=== PATIENT | female | born 1985 | race American Indian/Alaskan Native ===

== ENCOUNTER 2019-08-31 16:34 | Emergency (ER) | payer SELFPAY | END 2019-08-31 17:40 | disposition left against medical advice (07) | LOC: ED 16:34 | DX: O20.8 Other hemorrhage in early pregnancy (principal); Z53.21 Procedure and treatment not carried out due to patient leaving prior to being seen by health care provider ==

== ENCOUNTER 2019-12-09 13:13 | Emergency (ER) | payer SELFPAY ==
--- NOTE | 2019-12-09 13:23 | Emergency Department Report ---
Blank Doc - Documentation Documentation: 34-year-old female that presents with flank pain with pelvic pain. This initial assessment/diagnostic orders/clinical plan/treatment(s) is/are subject to change based on patient's health status, clinical progression and re- assessment by fellow clinical providers in the ED. Further treatment and workup at subsequent clinical providers discretion. Patient/guardians urged not to elope from the ED as their condition may be serious if not clinically assessed and managed. Initial orders include: 1- Patient sent to [facility] for further evaluation and treatment 2- UA
[2019-12-09 14:53] LABS: Bacteria,Urine 1+ /HPF (Negative); Bilirubin,Urine NEG (Negative); Blood,Urine NEG (Negative); Color,Urine Amber (Yellow); Mucus,Urine 3+ /HPF; Protein,Urine <15 mg/dL mg/dL (Negative)
[2019-12-09] MEDS ORDERED: SODIUM CHLORIDE 0.9% 1000 ML 1,000 ML IV ONE (14:59)
[2019-12-09] MEDS ORDERED: cefTRIAXone/NS 1 GM/50 ML 1 GM/50 ML BAG IV ONE (15:11)
[2019-12-09 15:33] LABS: Basophils % (Auto) 0.5 % (0.0-1.8); Eosinophils # (Auto) 0.2 K/mm3 (0.0-0.4); Eosinophils % (Auto) 2.2 % (0.0-4.3); Hematocrit 35.6 % (30.3-42.9); Hemoglobin 11.5 gm/dl (10.1-14.3); Lymphocytes # (Auto) 2.2 K/mm3 (1.2-5.4); Lymphocytes % (Auto) 30.3 % (13.4-35.0); Mean Corpuscular HGB Conc 32 % (30-34); Mean Corpuscular Volume 89 fl (79-97); Monocytes # (Auto) 0.5 K/mm3 (0.0-0.8); Monocytes % (Auto) 6.8 % (0.0-7.3); Platelet Count 264 K/mm3 (140-440); Red Blood Count 3.98 M/mm3 (3.65-5.03); Red Cell Distribution Width 13.7 % (13.2-15.2)
[2019-12-09 15:49] LABS: BUN/Creatinine Ratio 24; Blood Urea Nitrogen 17 mg/dL (7-17); Calcium 8.7 mg/dL (8.4-10.2); Hemolysis Index 2
--- NOTE | 2019-12-09 15:54 | Emergency Department Report ---
ED Dysuria HPI - HPI Chief Complaint: Abdominal Pain Stated Complaint: LOWER ABD PAIN Time Seen by Provider: 12/09/19 13:22 Location of Discomfort: Suprapubic Severity: Moderate Symptoms: Dysuria: Yes, Frequency: Yes, Suprapubic Pain: Yes, Flank Pain: Yes, Fever: No, Hematuria: No, Abdominal Pain: No, Previous UTI's: Yes Other History: Patient is a 34-year-old -[place] female comes to the ER today with left flank pain and suprapubic pain. She endorses dysuria. She states that she has had UTIs in the past and she believes she has a urinary tract infection. She denies fever or chills. She denies nausea vomiting diarrhea. Patient is ambulatory nontoxic on arrival to fast-track ED Review of Systems ROS: Stated complaint: LOWER ABD PAIN Other details as noted in HPI Comment: All other systems reviewed and negative ED Past Medical Hx - Past Medical History Previous Medical History?: No - Surgical History Past Surgical History?: Yes Hx Appendectomy: Yes Additional Surgical History: X4 / HERNIA/ - Family History Family history: no significant - Social History Smoking Status: Current Every Day Smoker Substance Use Type: None - Medications Home Medications: Home Medications Medication Instructions Recorded Confirmed Last Taken Type Sulfamethoxazole/Trimethoprim 1 each PO BID #10 tablet 12/09/19 Unknown Rx [Bactrim DS TAB] Dysuria Exam - Exam General: Vital signs noted. No distress. Alert and acting appropriately. Exam: No Moist Mucous Membranes, No CVA Tenderness, No Abdominal Tenderness, No Rigidity or Guarding Labs: Lab Results 12/09/19 12/09/19 12/09/19 Range/Units 14:35 15:16 15:16 WBC 7.1 (4.5-11.0) K/mm3 RBC 3.98 (3.65-5.03) M/mm3 Hgb 11.5 (10.1-14.3) gm/dl Hct 35.6 (30.3-42.9) % MCV 89 (79-97) fl MCH 29 (28-32) pg MCHC 32 (30-34) % RDW 13.7 (13.2-15.2) % Plt Count 264 (140-440) K/mm3 Lymph % (Auto) 30.3 (13.4-35.0) % [place] % (Auto) 6.8 (0.0-7.3) % Eos % (Auto) 2.2 (0.0-4.3) % Baso % (Auto) 0.5 (0.0-1.8) % Lymph # 2.2 (1.2-5.4) K/mm3 [place] # 0.5 (0.0-0.8) K/mm3 Eos # 0.2 (0.0-0.4) K/mm3 Baso # 0.0 (0.0-0.1) K/mm3 Seg Neutrophils % 60.2 (40.0-70.0) % Seg Neutrophils # 4.3 (1.8-7.7) K/mm3 Sodium 139 (137-145) mmol/L Potassium 4.3 (3.6-5.0) mmol/L Chloride 103.3 (98-107) mmol/L Carbon Dioxide 27 (22-30) mmol/L Anion Gap 13 mmol/L BUN 17 (7-17) mg/dL Creatinine 0.7 (0.7-1.2) mg/dL Estimated GFR > 60 ml/min BUN/Creatinine Ratio 24 % Glucose 125 H (65-100) mg/dL Calcium 8.7 (8.4-10.2) mg/dL HCG, Qual (Negative) Urine Color [place] (Yellow) Urine Turbidity Clear (Clear) Urine pH 5.0 (5.0-7.0) Ur Specific [place] 1.023 (1.003-1.030) Urine Protein <15 mg/dl (Negative) mg/dL Urine Glucose (UA) Neg (Negative) mg/dL Urine Ketones Neg (Negative) mg/dL Urine Blood Neg (Negative) Urine Nitrite Pos (Negative) Urine Bilirubin Neg (Negative) Urine Urobilinogen 4.0 (<2.0) mg/dL Ur Leukocyte Esterase Neg (Negative) Urine WBC (Auto) 10.0 H (0.0-6.0) /HPF Urine RBC (Auto) 2.0 (0.0-6.0) /HPF U Epithel Cells (Auto) < 1.0 (0-13.0) /HPF Urine Bacteria (Auto) 1+ (Negative) /HPF Urine Mucus 3+ /HPF 03//20 Range/Units 15:16 WBC (4.5-11.0) K/mm3 RBC (3.65-5.03) M/mm3 Hgb (10.1-14.3) gm/dl Hct (30.3-42.9) % MCV (79-97) fl MCH (28-32) pg MCHC (30-34) % RDW (13.2-15.2) % Plt Count (140-440) K/mm3 Lymph % (Auto) (13.4-35.0) % [place] % (Auto) (0.0-7.3) % Eos % (Auto) (0.0-4.3) % Baso % (Auto) (0.0-1.8) % Lymph # (1.2-5.4) K/mm3 [place] # (0.0-0.8) K/mm3 Eos # (0.0-0.4) K/mm3 Baso # (0.0-0.1) K/mm3 Seg Neutrophils % (40.0-70.0) % Seg Neutrophils # (1.8-7.7) K/mm3 Sodium (137-145) mmol/L Potassium (3.6-5.0) mmol/L Chloride (98-107) mmol/L Carbon Dioxide (22-30) mmol/L Anion Gap mmol/L BUN (7-17) mg/dL Creatinine (0.7-1.2) mg/dL Estimated GFR ml/min BUN/Creatinine Ratio % Glucose (65-100) mg/dL Calcium (8.4-10.2) mg/dL HCG, Qual Negative (Negative) Urine Color (Yellow) Urine Turbidity (Clear) Urine pH (5.0-7.0) Ur Specific [place] (1.003-1.030) Urine Protein (Negative) mg/dL Urine Glucose (UA) (Negative) mg/dL Urine Ketones (Negative) mg/dL Urine Blood (Negative) Urine Nitrite (Negative) Urine Bilirubin (Negative) Urine Urobilinogen (<2.0) mg/dL Ur Leukocyte Esterase (Negative) Urine WBC (Auto) (0.0-6.0) /HPF Urine RBC (Auto) (0.0-6.0) /HPF U Epithel Cells (Auto) (0-13.0) /HPF Urine Bacteria (Auto) (Negative) /HPF Urine Mucus /HPF ED Course Vital Signs 12/09/19 13:22 Temperature 98.6 F Pulse Rate 78 Respiratory 18 Rate Blood Pressure 116/75 O2 Sat by Pulse 98 Oximetry ED Medical Decision Making - Lab Data Result diagrams: 12/09/19 15:16 12/09/19 15:16 - Medical Decision Making Vital Signs 12/09/19 13:22 Temperature 98.6 F Pulse Rate 78 Respiratory 18 Rate Blood Pressure 116/75 O2 Sat by Pulse 98 Oximetry Lab Results 12/09/19 12/09/19 12/09/19 Range/Units 14:35 15:16 15:16 WBC 7.1 (4.5-11.0) K/mm3 RBC 3.98 (3.65-5.03) M/mm3 Hgb 11.5 (10.1-14.3) gm/dl Hct 35.6 (30.3-42.9) % MCV 89 (79-97) fl MCH 29 (28-32) pg MCHC 32 (30-34) % RDW 13.7 (13.2-15.2) % Plt Count 264 (140-440) K/mm3 Lymph % (Auto) 30.3 (13.4-35.0) % [place] % (Auto) 6.8 (0.0-7.3) % Eos % (Auto) 2.2 (0.0-4.3) % Baso % (Auto) 0.5 (0.0-1.8) % Lymph # 2.2 (1.2-5.4) K/mm3 [place] # 0.5 (0.0-0.8) K/mm3 Eos # 0.2 (0.0-0.4) K/mm3 Baso # 0.0 (0.0-0.1) K/mm3 Seg Neutrophils % 60.2 (40.0-70.0) % Seg Neutrophils # 4.3 (1.8-7.7) K/mm3 Sodium 139 (137-145) mmol/L Potassium 4.3 (3.6-5.0) mmol/L Chloride 103.3 (98-107) mmol/L Carbon Dioxide 27 (22-30) mmol/L Anion Gap 13 mmol/L BUN 17 (7-17) mg/dL Creatinine 0.7 (0.7-1.2) mg/dL Estimated GFR > 60 ml/min BUN/Creatinine Ratio 24 % Glucose 125 H (65-100) mg/dL Calcium 8.7 (8.4-10.2) mg/dL HCG, Qual (Negative) Urine Color [place] (Yellow) Urine Turbidity Clear (Clear) Urine pH 5.0 (5.0-7.0) Ur Specific [place] 1.023 (1.003-1.030) Urine Protein <15 mg/dl (Negative) mg/dL Urine Glucose (UA) Neg (Negative) mg/dL Urine Ketones Neg (Negative) mg/dL Urine Blood Neg (Negative) Urine Nitrite Pos (Negative) Urine Bilirubin Neg (Negative) Urine Urobilinogen 4.0 (<2.0) mg/dL Ur Leukocyte Esterase Neg (Negative) Urine WBC (Auto) 10.0 H (0.0-6.0) /HPF Urine RBC (Auto) 2.0 (0.0-6.0) /HPF U Epithel Cells (Auto) < 1.0 (0-13.0) /HPF Urine Bacteria (Auto) 1+ (Negative) /HPF Urine Mucus 3+ /HPF 12/09/19 Range/Units 15:16 WBC (4.5-11.0) K/mm3 RBC (3.65-5.03) M/mm3 Hgb (10.1-14.3) gm/dl Hct (30.3-42.9) % MCV (79-97) fl MCH (28-32) pg MCHC (30-34) % RDW (13.2-15.2) % Plt Count (140-440) K/mm3 Lymph % (Auto) (13.4-35.0) % [place] % (Auto) (0.0-7.3) % Eos % (Auto) (0.0-4.3) % Baso % (Auto) (0.0-1.8) % Lymph # (1.2-5.4) K/mm3 [place] # (0.0-0.8) K/mm3 Eos # (0.0-0.4) K/mm3 Baso # (0.0-0.1) K/mm3 Seg Neutrophils % (40.0-70.0) % Seg Neutrophils # (1.8-7.7) K/mm3 Sodium (137-145) mmol/L Potassium (3.6-5.0) mmol/L Chloride (98-107) mmol/L Carbon Dioxide (22-30) mmol/L Anion Gap mmol/L BUN (7-17) mg/dL Creatinine (0.7-1.2) mg/dL Estimated GFR ml/min BUN/Creatinine Ratio % Glucose (65-100) mg/dL Calcium (8.4-10.2) mg/dL HCG, Qual Negative (Negative) Urine Color (Yellow) Urine Turbidity (Clear) Urine pH (5.0-7.0) Ur Specific [place] (1.003-1.030) Urine Protein (Negative) mg/dL Urine Glucose (UA) (Negative) mg/dL Urine Ketones (Negative) mg/dL Urine Blood (Negative) Urine Nitrite (Negative) Urine Bilirubin (Negative) Urine Urobilinogen (<2.0) mg/dL Ur Leukocyte Esterase (Negative) Urine WBC (Auto) (0.0-6.0) /HPF Urine RBC (Auto) (0.0-6.0) /HPF U Epithel Cells (Auto) (0-13.0) /HPF Urine Bacteria (Auto) (Negative) /HPF Urine Mucus /HPF noted to be negative. Patient not concerned for STD. Labs noted. UA noted. Medicated with normal saline/Rocephin IV. Patient ambulatory, afebrile and taking p.o. We will discharge home with PCP follow-up - Differential Diagnosis UTI versus pyelonephritis-STI- rule out Critical care attestation.: If time is entered above; I have spent that time in minutes in the direct care of this critically ill patient, excluding procedure time. ED Disposition Clinical Impression: UTI (urinary tract infection) Disposition: DC- TO HOME OR SELFCARE Is pt being admited?: No Does the pt Need Aspirin: No Condition: Stable Instructions: Urinary Tract Infection in Women (ED) Additional Instructions: meds as ordered today follow up with pcp referral below motrin or tylenol for pain hydrate well with water urinate after sex Prescriptions: Sulfamethoxazole/Trimethoprim [Bactrim DS TAB] 1 each PO BID #10 tablet Referrals: STEFANY DEL REAL MD [Staff Physician] - 3-5 Days Time of Disposition: 15:54
[2019-12-09 16:46] VITALS: BP 123/67
== END 2019-12-09 17:16 | disposition home or self-care (01) ==
LOC: ED 13:13
DX: N39.0 Urinary tract infection, site not specified (principal); F17.200 Nicotine dependence, unspecified, uncomplicated
CPT/HCPCS: 36415; 80048; 81001; 84703; 85025; 87086; 96374; 99283; J0696; J7030

== ENCOUNTER 2020-02-06 10:51 | Emergency (ER) | payer SELFPAY ==
[2020-02-06] MEDS ORDERED: SODIUM CHLORIDE 0.9% 1000 ML 1,000 ML IV ONE (11:22)
[2020-02-06] MEDS ORDERED: ACETAMINOPHEN 325 MG TAB PO ONE (11:23)
[2020-02-06 11:43] LABS: Bilirubin,Urine NEG (Negative); Blood,Urine NEG (Negative); Color,Urine Yellow (Yellow); Mucus,Urine 3+ /HPF; Protein,Urine <15 mg/dL mg/dL (Negative)
--- NOTE | 2020-02-06 11:50 | Emergency Department Report ---
ED N/V/D HPI - General Chief complaint: Abdominal Pain Stated complaint: /ABD PAIN Time Seen by Provider: 02/06/20 11:22 Source: patient Mode of arrival: Ambulatory Limitations: No Limitations - History of Present Illness Initial comments: Patient is a 34-year-old F [place] female who is approximately 6 weeks who is presenting with lower abdominal pain. Patient states pain is achy in nature and 6 out of 10 in severity. She denies any vaginal bleeding or dysuria. Pain is in the lower abdomen suprapubic region. States she has had some nausea some decreased appetite but no vomiting. She states she does get some mild dizziness when standing and does feel as though she may be dehydrated. She denies fevers chills cough cold or congestion at this time - Related Data Previous Rx's Medication Instructions Recorded Last Taken Type Sulfamethoxazole/Trimethoprim 1 each PO BID #10 tablet 12/09/19 Unknown Rx [Bactrim DS TAB] Allergies Allergy/AdvReac Type Severity Reaction Status Date / Time No Known Allergies Allergy Verified 12/09/19 13:14 ED Review of Systems ROS: Stated complaint: /ABD PAIN Other details as noted in HPI Comment: All other systems reviewed and negative ED Past Medical Hx - Past Medical History Previous Medical History?: Yes Additional medical history: Tubal - Surgical History Past Surgical History?: Yes Hx Appendectomy: Yes Additional Surgical History: X4 / HERNIA/ - Social History Smoking Status: Current Every Day Smoker Substance Use Type: None - Medications Home Medications: Home Medications Medication Instructions Recorded Confirmed Last Taken Type Sulfamethoxazole/Trimethoprim 1 each PO BID #10 tablet 12/09/19 Unknown Rx [Bactrim DS TAB] ED Physical Exam - General Limitations: No Limitations General appearance: alert, in no apparent distress - Head Head exam: Present: atraumatic, normocephalic - Eye Eye exam: Present: normal appearance, PERRL, EOMI - ENT ENT exam: Present: normal orophraynx, mucous membranes moist - Neck Neck exam: Present: normal inspection - Respiratory Respiratory exam: Present: normal lung sounds bilaterally. Absent: respiratory distress, wheezes, rales, rhonchi - Cardiovascular Cardiovascular Exam: Present: regular rate, normal rhythm. Absent: bradycardia, tachycardia, systolic murmur, diastolic murmur, rubs, gallop - GI/Abdominal GI/Abdominal exam: Present: soft, tenderness (Epigastric), normal bowel sounds. Absent: distended, guarding, rebound, rigid - Extremities Exam Extremities exam: Present: normal inspection - Back Exam Back exam: Present: normal inspection - Neurological Exam Neurological exam: Present: alert, oriented X3 - Psychiatric Psychiatric exam: Present: normal affect, normal mood - Skin Skin exam: Present: warm, dry, intact, normal color. Absent: rash ED Course Vital Signs 02/06/20 10:54 Temperature 98.7 F Pulse Rate 91 H Respiratory 18 Rate Blood Pressure 122/70 O2 Sat by Pulse 99 Oximetry ED Medical Decision Making - Lab Data Result diagrams: 02/06/20 11:33 02/06/20 11:33 Lab Results 02/06/20 02/06/20 02/06/20 Range/Units 11:08 11:33 11:33 WBC 9.3 (4.5-11.0) K/mm3 RBC 4.03 (3.65-5.03) M/mm3 Hgb 11.7 (10.1-14.3) gm/dl Hct 35.7 (30.3-42.9) % MCV 89 (79-97) fl MCH 29 (28-32) pg MCHC 33 (30-34) % RDW 13.2 (13.2-15.2) % Plt Count 263 (140-440) K/mm3 Lymph % (Auto) 20.6 (13.4-35.0) % [place] % (Auto) 4.5 (0.0-7.3) % Eos % (Auto) 2.6 (0.0-4.3) % Baso % (Auto) 0.7 (0.0-1.8) % Lymph # 1.9 (1.2-5.4) K/mm3 [place] # 0.4 (0.0-0.8) K/mm3 Eos # 0.2 (0.0-0.4) K/mm3 Baso # 0.1 (0.0-0.1) K/mm3 Seg Neutrophils % 71.6 H (40.0-70.0) % Seg Neutrophils # 6.7 (1.8-7.7) K/mm3 Sodium 137 (137-145) mmol/L Potassium 3.6 (3.6-5.0) mmol/L Chloride 103.1 (98-107) mmol/L Carbon Dioxide 23 (22-30) mmol/L Anion Gap 15 mmol/L BUN 13 (7-17) mg/dL Creatinine 0.7 (0.7-1.2) mg/dL Estimated GFR > 60 ml/min BUN/Creatinine Ratio 19 % Glucose 136 H (65-100) mg/dL Calcium 8.6 (8.4-10.2) mg/dL HCG, Quant (0-4) mIU/mL Urine Color Yellow (Yellow) Urine Turbidity Clear (Clear) Urine pH 5.0 (5.0-7.0) Ur Specific [place] 1.027 (1.003-1.030) Urine Protein <15 mg/dl (Negative) mg/dL Urine Glucose (UA) Neg (Negative) mg/dL Urine Ketones Neg (Negative) mg/dL Urine Blood Neg (Negative) Urine Nitrite Neg (Negative) Urine Bilirubin Neg (Negative) Urine Urobilinogen 2.0 (<2.0) mg/dL Ur Leukocyte Esterase Tr (Negative) Urine WBC (Auto) 4.0 (0.0-6.0) /HPF Urine RBC (Auto) 1.0 (0.0-6.0) /HPF U Epithel Cells (Auto) < 1.0 (0-13.0) /HPF Urine Mucus 3+ /HPF 02/06/20 Range/Units 11:33 WBC (4.5-11.0) K/mm3 RBC (3.65-5.03) M/mm3 Hgb (10.1-14.3) gm/dl Hct (30.3-42.9) % MCV (79-97) fl MCH (28-32) pg MCHC (30-34) % RDW (13.2-15.2) % Plt Count (140-440) K/mm3 Lymph % (Auto) (13.4-35.0) % [place] % (Auto) (0.0-7.3) % Eos % (Auto) (0.0-4.3) % Baso % (Auto) (0.0-1.8) % Lymph # (1.2-5.4) K/mm3 [place] # (0.0-0.8) K/mm3 Eos # (0.0-0.4) K/mm3 Baso # (0.0-0.1) K/mm3 Seg Neutrophils % (40.0-70.0) % Seg Neutrophils # (1.8-7.7) K/mm3 Sodium (137-145) mmol/L Potassium (3.6-5.0) mmol/L Chloride (98-107) mmol/L Carbon Dioxide (22-30) mmol/L Anion Gap mmol/L BUN (7-17) mg/dL Creatinine (0.7-1.2) mg/dL Estimated GFR ml/min BUN/Creatinine Ratio % Glucose (65-100) mg/dL Calcium (8.4-10.2) mg/dL HCG, Quant 2998 H (0-4) mIU/mL Urine Color (Yellow) Urine Turbidity (Clear) Urine pH (5.0-7.0) Ur Specific [place] (1.003-1.030) Urine Protein (Negative) mg/dL Urine Glucose (UA) (Negative) mg/dL Urine Ketones (Negative) mg/dL Urine Blood (Negative) Urine Nitrite (Negative) Urine Bilirubin (Negative) Urine Urobilinogen (<2.0) mg/dL Ur Leukocyte Esterase (Negative) Urine WBC (Auto) (0.0-6.0) /HPF Urine RBC (Auto) (0.0-6.0) /HPF U Epithel Cells (Auto) (0-13.0) /HPF Urine Mucus /HPF - Radiology Data Radiology results: image reviewed (Ultrasound shows a 5week gestational sac with no pole or yolk sac as of yet) - Medical Decision Making Patient is a 34-year-old F [place] female who is approximately 6weeks per her estimation. Ultrasound shows a gestational sac without pole. Is estimated the patient is approximate 5 weeks. Patient's pain could be from implantation pain or some mild dehydration. Patient could also be in the early stages of miscarriage. Patient will need further evaluation approximately a week to ensure that there is a heartbeat. Critical care attestation.: If time is entered above; I have spent that time in minutes in the direct care of this critically ill patient, excluding procedure time. ED Disposition Clinical Impression: Abdominal pain affecting Disposition: DC-01 TO HOME OR SELFCARE Is pt being admited?: No Does the pt Need Aspirin: No Condition: Stable Instructions: (ED) Additional Instructions: Please follow-up with repeat ultrasound approximately 1 week. Until a Heartbeat is seen the differential diagnosis for your abdominal pain is implantation pain, dehydration, threatened miscarriage with demise. Referrals: RIMA GOOD MD [Staff Physician] - 3-5 Days Time of Disposition: 15:18
[2020-02-06 12:18] LABS: BUN/Creatinine Ratio 19; Blood Urea Nitrogen 13 mg/dL (7-17); Calcium 8.6 mg/dL (8.4-10.2); Hemolysis Index 8
[2020-02-06 12:19] LABS: Basophils # (Auto) 0.1 K/mm3 (0.0-0.1); Basophils % (Auto) 0.7 % (0.0-1.8); Eosinophils # (Auto) 0.2 K/mm3 (0.0-0.4); Eosinophils % (Auto) 2.6 % (0.0-4.3); Hematocrit 35.7 % (30.3-42.9); Hemoglobin 11.7 gm/dl (10.1-14.3); Lymphocytes # (Auto) 1.9 K/mm3 (1.2-5.4); Lymphocytes % (Auto) 20.6 % (13.4-35.0); Mean Corpuscular HGB Conc 33 % (30-34); Mean Corpuscular Volume 89 fl (79-97); Monocytes # (Auto) 0.4 K/mm3 (0.0-0.8); Monocytes % (Auto) 4.5 % (0.0-7.3); Platelet Count 263 K/mm3 (140-440); Red Blood Count 4.03 M/mm3 (3.65-5.03); Red Cell Distribution Width 13.2 % (13.2-15.2)
--- NOTE | 2020-02-06 15:19 | Ultrasound Report ---
US OB <= 14 weeks fetus, US OB transvaginal INDICATION / CLINICAL INFORMATION: preg with abd pain/. COMPARISON: None available. FINDINGS: A gestational sac measuring 1.0 cm is seen in the uterus. No pole or yolk sac is identified. Nico th ovaries are normal in appearance. IMPRESSION: Gestational sac in the uterus without a pole or yolk sac. These findings could be due to either a that is too early to visualize a pole or a blighted ovum Signer Name: Jose Gutierrez MD FACR Signed: 02/06/2020 3:15 PM Workstation Name: [id number]
[2020-02-06 16:24] VITALS: BP 133/68
== END 2020-02-06 16:24 | disposition home or self-care (01) ==
LOC: ED 10:51
DX: O26.891 Other specified pregnancy related conditions, first trimester (principal); R10.2 Pelvic and perineal pain; R11.0 Nausea; Z3A.01 Less than 8 weeks gestation of pregnancy
CPT/HCPCS: 36415; 76801; 76817; 80048; 81001; 84702; 85025; 99284; J7030